=== PATIENT | male | born 1955 | race Hispanic/Latino ===

== ENCOUNTER → 2018-12-13 | Outpatient (CLI) | payer OTHER ==
[2018-12-13 17:23] LABS: CREATININE 1.1 mg/dL (0.5-1.5)
== END | disposition home or self-care (01) ==
LOC: LAB 16:50
PROVIDERS: ATTEND Internal Medicine Gastroenterology
DX: C21.8 Malignant neoplasm of overlapping sites of rectum, anus and anal canal (principal)
CPT/HCPCS: 36415; 82565; 84520

== ENCOUNTER → 2018-12-16 | Outpatient (CLI) | payer OTHER ==
[~2018-12-16] MED LIST: IOHEXOL 350 MG/ML 100ML INFUS..BTL IV ONE
== END | disposition home or self-care (01) ==
LOC: RAH 08:01
PROVIDERS: ATTEND Internal Medicine Gastroenterology
DX: C21.8 Malignant neoplasm of overlapping sites of rectum, anus and anal canal (principal); I25.10 Atherosclerotic heart disease of native coronary artery without angina pectoris; K42.9 Umbilical hernia without obstruction or gangrene; I72.3 Aneurysm of iliac artery
CPT/HCPCS: 71270; 74178; Q9967

== ENCOUNTER 2019-08-31 12:54 | Inpatient (IN) | payer OTHER ==
[~2019-08-31] VITALS: Ht 172.7 cm; Wt 83.6 kg
[2019-08-31] MEDS ORDERED: ASPIRIN 325 MG TABLET ONE (13:49)
[2019-08-31] MEDS ORDERED: METOPROLOL TARTRATE 1 MG/ML 5ML VIAL IV ONE (13:50)
[2019-08-31 14:01] LABS: BASOPHILS % (AUTO) 0.5 % (0.0-5.0); EOSINOPHILS % (AUTO) 0.9 % (0.0-8.0); LYMPHOCYTES % (AUTO) 16.5 % (21.0-51.0); MEAN CORPUSCULAR HGB CONC 33.3 g/dL (32.0-36.0); MONOCYTES % (AUTO) 14.6 % (3.0-13.0); NEUTROPHILS % (AUTO) 66.7 % (40.0-77.0); NUCLEATED RED BLOOD CELLS 0.9 % (0.0-0.19); PLATELET COUNT (AUTO) 190 K/uL (130-400); RED BLOOD CELL COUNT(AUTO) 4.83 MIL/uL (4.50-6.20); RED CELL DISTRIBUTION WIDTH 20.8 % (11.0-15.5); WHITE BLOOD COUNT (AUTO) 7.4 K/uL (4.8-10.8)
[2019-08-31 14:03] LABS: CREATININE 1.2 mg/dL (0.5-1.5); POTASSIUM 4.1 mmol/L (3.5-5.1)
[2019-08-31] MEDS ORDERED: IOHEXOL-350 75 ML VIAL IV ONE (14:04)
[2019-08-31 14:08] LABS: ALBUMIN 3.5 g/dL (3.5-5.0); BILIRUBIN,TOTAL 0.4 mg/dL (0.2-1.0); TOTAL PROTEIN, SERUM 7.6 g/dL (6.0-8.3)
[2019-08-31 14:13] LABS: INR 1.08 (0.85-1.15); PARTIAL THROMBOPLASTIN TIME 29.4 SEC (26.3-35.5); PROTHROMBIN TIME 11.6 SEC (9.6-11.6)
[2019-08-31] MEDS ORDERED: ENOXAPARIN SODIUM 100 MG/1 ML SQ ONE (15:33)
[2019-08-31] MEDS ORDERED: SODIUM CHLORIDE 0.9% 1000ML 1,000 ML IV SCH (16:00)
[2019-08-31 16:09] LABS: ABG BASE EXCESS -2.8 mmol/L (-2.0-3.0); ABG HCO3 19.6 mmol/L (21.0-28.0); ABG OXYGEN SATURATION 97.1 % (95.0-99.0); ABG PCO2 28 mmHg (35-48)
[2019-08-31] MEDS ORDERED: HYDROMORPHONE HCL 0.5 MG/0.5 ML ML IVP PRN (19:00)
[2019-08-31] MEDS ORDERED: ACETAMINOPHEN 325 MG TAB PO PRN (19:00)
[2019-08-31] MEDS ORDERED: LACTULOSE 20 GM/30 ML UDCUP PO PRN (19:00)
[2019-08-31] MEDS ORDERED: HYDROCODONE/ACETAMINOPHEN 5/325 MG TAB PO PRN (19:00)
[2019-08-31] MEDS ORDERED: ZOLPIDEM TARTRATE 5 MG TAB PO PRN (19:00)
[2019-08-31] MEDS ORDERED: POTASSIUM CHLORIDE 20MEQ/100ML 100 ML IV PRN (19:15)
[2019-08-31] MEDS ORDERED: ONDANSETRON HCL 4 MG/2 ML VIAL IVP PRN (19:15)
[2019-08-31] MEDS ORDERED: LIDOCAINE HCL-MPF 1% 2ML VIAL IJ PRN (19:15)
[2019-08-31] MEDS ORDERED: POTASSIUM CHLORIDE 10% ELIXIR 20 MEQ/15 ML UDCUP PO PRN (19:15)
[2019-08-31] MEDS ORDERED: POTASSIUM CHLORIDE 20 MEQ ERTAB PO PRN (19:15)
[2019-08-31] MEDS ORDERED: MAGNESIUM 2GM PREMIX 50ML 50 ML IV SCH (19:15)
[2019-08-31] MEDS ORDERED: HYDRALAZINE HCL 20 MG/ML VIAL IV PRN (19:15)
[2019-08-31] MEDS: ENOXAPARIN SODIUM 80 MG/0.8 ML SQ SCH (23:00)
[2019-08-31 23:36] VITALS: BP 129/98
[2019-09-01 04:00] VITALS: BP 124/78
[2019-09-01 06:07] LABS: BASOPHILS % (AUTO) 0.5 % (0.0-5.0); EOSINOPHILS % (AUTO) 1.1 % (0.0-8.0); HEMATOCRIT 39.3 % (42-54); LYMPHOCYTES % (AUTO) 18.5 % (21.0-51.0); MEAN CORPUSCULAR HEMOGLOBIN 28.7 pg (27.0-33.0); MEAN CORPUSCULAR HGB CONC 32.6 g/dL (32.0-36.0); MEAN CORPUSCULAR VOLUME 88.1 fL (79-99); MONOCYTES % (AUTO) 21.8 % (3.0-13.0); NEUTROPHILS % (AUTO) 57.3 % (40.0-77.0); NUCLEATED RED BLOOD CELLS 1.7 % (0.0-0.19); PLATELET COUNT (AUTO) 205 K/uL (130-400); RED BLOOD CELL COUNT(AUTO) 4.46 MIL/uL (4.50-6.20); RED CELL DISTRIBUTION WIDTH 21.2 % (11.0-15.5); WHITE BLOOD COUNT (AUTO) 6.4 K/uL (4.8-10.8)
[2019-09-01] MEDS ORDERED: IRON PO (07:21)
[2019-09-01 08:08] VITALS: BP 113/89
[2019-09-01] MEDS: ENOXAPARIN SODIUM 80 MG/0.8 ML SQ SCH (08:26)
--- NOTE | 2019-09-01 11:12 | NUR ---
MYNOR FROM [facility] HERE TO SEE PATIENT; SHE WANTED TO ORDER A EKOS PROCEDURE BUT THIS HOSPITAL DOES NOT PERFORM THEM SO RECOMENDATION IS TO TRANSFER TO [facility]; WE HAVE CALLED DR GRAYSON AND RECEIVED OK TO TRANSFER AND LET [employer] MAYDA KNOW. SHE WILL UPDATE US WHEN PLANS COMPLETE
[2019-09-01 11:45] VITALS: BP 126/90
--- NOTE | 2019-09-01 12:08 | NUR ---
PT HAS STATED UNDERSTANDING OF NEED TO TRANSFER TO [facility]; HE DROVE HERE, HE HAS CALLED HIS TO COME AND RESEARCH LABORATORY TECHNICIAN HIS CAR KEYS AND TAKE HIS VEHICLE HOME; DR GRAYSON HERE TO SEE PATIENT; HE SIGNED THE MOT FORMS NECESSARY; I ALSO RECEIVED A CALL FROM STEPHANIA AT IR IN [facility] AND GAVE REPORT TO HIM ON THE PATIENT; I DESCRIBED THE PROCEDURE EKOS TO THE PATIENT AND HE IS AGREEABLE TO HAVING DONE AT [facility]; WILL AWAIT BED CONFIRMATION.
--- NOTE | 2019-09-01 13:03 | NUR ---
RECEIVED A CALL FROM LEROY CHEN [place] [facility] BED [phone]; I HAVE CALLED REPORT TO [facility] AT [phone]; I HAVE CALLED EMS FOR PICKUP; CHART HAS BEEN COPIED AND MOT SIGNED AND COPIED; PT'S HAS COME TO DESIGN ENG HIS VEHICLE; PT WILL BE TRANSPORTED WITH IV ACCESS IN PLACE.
--- NOTE | 2019-09-01 13:29 | NUR ---
PT STATED UNDERSTANDING OF TRANSFER AND SIGNED D/C PAPERWORK; TELE REMOVED.
--- NOTE | 2019-09-01 13:35 | NUR ---
CM NOTE/IA MEET WITH PATIENT IN ROOM. PER PATIENT, LIVES WITH SPOUSE, IS INDEPENDENT WITH ADLS, NO DME IN USE, OBTAINS COLOSTOMY SUPPLIES FROM [place], NO HOME HEALTH OR PROVIDER SERVICES IN USE, AND FEELS SAFE TO RETURN HOME ONCE MEDICALLY CLEARED. PER PRIMARY NURSE, LUIS PALENCIA, PATIENT WILL TRANSFER TO HIGHER LEVEL OF CARE FOR SURGERY REQUIRED FOR PATIENT CONDITION/DIAGNOSIS. Addendum: 09/01/19 at 1340 by CARLY REY RN CM Amended: Links added.
[2019-09-01] MEDS ORDERED: APIXABAN 5 MG TABLET PO SCH (21:00)
== END 2019-09-01 13:40 | disposition short-term general hospital (02) | DRG 176 ==
LOC: EDH 12:54 → EDHIP 15:00 → 4BH 23:23
PROVIDERS: ADMIT Internal Medicine Hematology & Oncology; ATTEND Internal Medicine Hematology & Oncology
DX: I26.92 Saddle embolus of pulmonary artery without acute cor pulmonale (principal); C20 Malignant neoplasm of rectum; I45.10 Unspecified right bundle-branch block; I27.20 Pulmonary hypertension, unspecified; Z85.038 Personal history of other malignant neoplasm of large intestine; Z86.711 Personal history of pulmonary embolism; Z87.891 Personal history of nicotine dependence; Z90.49 Acquired absence of other specified parts of digestive tract; Z92.21 Personal history of antineoplastic chemotherapy; Z92.3 Personal history of irradiation; Z93.3 Colostomy status
CPT/HCPCS: 36415; 36600; 71045; 71275; 80053; 82550; 82803; 83880; 84484; 85025; 85610; 85730; 93005; 93306; 93356; 99291; G0378; J1650; J3490; J7030; Q9967

== ENCOUNTER → 2020-03-16 | Outpatient (CLI) | payer OTHER ==
[~2020-03-16] MED LIST changes: -IOHEXOL 350 MG/ML 100ML INFUS..BTL IV ONE; +IRON PO
== END | disposition home or self-care (01) ==
LOC: SHCH 09:35
PROVIDERS: ATTEND Internal Medicine Cardiovascular Disease
DX: I26.99 Other pulmonary embolism without acute cor pulmonale (principal)
CPT/HCPCS: 93306; 93356

== ENCOUNTER → 2020-09-18 | Outpatient (CLI) | payer OTHER | END | disposition home or self-care (01) | LOC: SHCH 09:25 | PROVIDERS: ATTEND Internal Medicine Cardiovascular Disease | DX: R60.9 Edema, unspecified (principal) | CPT/HCPCS: 93970 ==